=== PATIENT | male | born 1995 | race African-American/Black ===

== ENCOUNTER 2023-04-12 15:00 | Emergency (ER) | payer SELFPAY ==
[2023-04-12] MEDS ORDERED: metroNIDAZOLE 250 MG TAB ONE (16:17)
[2023-04-12 20:27] LABS: Chlam.trachomatis by PCR,Urine Not Detected (NotDetected); GC N.gonorrhoeae PCR,UrineVOID DETECTED (NotDetected)
== END 2023-04-12 16:20 | disposition home or self-care (01) ==
LOC: ERS 15:00
DX: Z20.2 Contact with and (suspected) exposure to infections with a predominantly sexual mode of transmission (principal); A59.9 Trichomoniasis, unspecified; N36.8 Other specified disorders of urethra; F17.290 Nicotine dependence, other tobacco product, uncomplicated
CPT/HCPCS: 87491; 87591; 99283